=== PATIENT | male | born 1935 | race Caucasian/White ===

== ENCOUNTER 2018-02-13 23:25 | Inpatient (IN) | payer OTHER ==
[~2018-02-13] VITALS: Ht 172.7 cm; Wt 76.1 kg
[2018-02-14] MEDS ORDERED: MORPHINE SULFATE 4 MG/1ML SYG ONE ×2 (00:12→08:59)
[2018-02-14 00:49] LABS: BASOPHILS % (AUTO) 2.7 % (0.0-5.0); EOSINOPHILS % (AUTO) 0.5 % (0.0-8.0); HEMATOCRIT 38.9 % (42-54); LYMPHOCYTES % (AUTO) 7.9 % (21.0-51.0); MEAN CORPUSCULAR HEMOGLOBIN 28.3 pg (27.0-33.0); MEAN CORPUSCULAR VOLUME 83.1 fL (79-99); MONOCYTES % (AUTO) 5.8 % (3.0-13.0); NEUTROPHILS % (AUTO) 83.1 % (40.0-77.0); PLATELET COUNT (AUTO) 219 K/uL (130-400); RED BLOOD CELL COUNT(AUTO) 4.69 MIL/uL (4.50-6.20); RED CELL DISTRIBUTION WIDTH 14.9 % (11.0-15.5); WHITE BLOOD COUNT (AUTO) 12.5 K/uL (4.8-10.8)
[2018-02-14 01:05] LABS: CREATININE 1.3 mg/dL (0.5-1.5); POTASSIUM 4.1 mmol/L (3.5-5.1)
[2018-02-14 01:10] LABS: ALBUMIN 3.2 g/dL (3.5-5.0); BILIRUBIN,TOTAL 0.4 mg/dL (0.2-1.0); TOTAL PROTEIN, SERUM 6.6 g/dL (6.0-8.3)
[2018-02-14 01:24] LABS: INR 0.97 (0.85-1.15); PARTIAL THROMBOPLASTIN TIME 27.6 SEC (26.3-35.5); PROTHROMBIN TIME 10.2 SEC (9.6-11.6)
[2018-02-14 03:20] VITALS: BP 130/64
[2018-02-14] MEDS ORDERED: FE F1CAP33 PO (03:40)
[2018-02-14] MEDS ORDERED: AMLO5TAB4 PO (03:40)
[2018-02-14] MEDS ORDERED: TAMS-1 PO (03:40)
[2018-02-14] MEDS ORDERED: PRAV20TA4 PO (03:40)
[2018-02-14] MEDS ORDERED: SERT50TA12 PO (03:40)
[2018-02-14] MEDS ORDERED: METF10004 PO (03:40)
[2018-02-14] MEDS ORDERED: ENAL10TA PO (03:40)
[2018-02-14] MEDS ORDERED: MORPHINE SULFATE 2 MG/ML 1ML SYG IVP PRN (04:15)
[2018-02-14] MEDS ORDERED: ONDANSETRON HCL MDV 20ML 2 MG/ML VIAL IVP PRN (04:15)
[2018-02-14 07:54] VITALS: BP 121/61
[2018-02-14] MEDS: FAMOTIDINE/PF 20 MG/2 ML VIAL IV SCH (08:14)
[2018-02-14 10:38] LABS: APPEARANCE,URINE TURBID (CLEAR); BILIRUBIN,URINE NEGATIVE (NEGATIVE); COLOR,URINE YELLOW (YELLOW); GLUCOSE, URINE (UA) NEGATIVE (NEGATIVE); KETONES,URINE 5 mg/dL (NEGATIVE); LEUKOCYTE ESTERASE ,URINE LARGE (NEGATIVE); NITRATE,URINE POSITIVE (NEGATIVE); OCCULT BLOOD,URINE TRACE-INTACT (NEGATIVE); PH,URINE 8.5 (5.0-8.0); PROTEIN,URINE >=300 (NEGATIVE)
[2018-02-14 10:43] LABS: WBC,URINE TNTC /HPF (0-1)
[2018-02-14 10:44] LABS: BACTERIA,URINE Many /HPF (None Seen); MUCUS,URINE Few LPF (None Seen); SQUAMOUS EPITHELIAL CELL,UR Rare /HPF (0-2)
[2018-02-14 11:22] VITALS: BP 114/67
[2018-02-14 16:32] VITALS: BP 144/69
[2018-02-14] MEDS: MORPHINE SULFATE 4 MG/1ML SYG IVP PRN ×2 (18:51→23:42)
[2018-02-14 19:52] VITALS: BP 132/75
[2018-02-14] MEDS: ATORVASTATIN CALCIUM 10 MG TABLET PO SCH (19:58)
[2018-02-14] MEDS: SERTRALINE HCL 50 MG TABLET PO SCH (19:58)
[2018-02-14 23:43] VITALS: BP 136/84
[2018-02-15] VITALS (23 sets, daily range): BP systolic 107–150; BP diastolic 57–87
[2018-02-15] MEDS ORDERED: DEXTROSE 5 %-0.45 % NACL 1,000 ML IV SCH
[2018-02-15] MEDS ORDERED: PHARMACY COMMUNICATION MISC SCH (03:15)
[2018-02-15] MEDS: CEFAZOLIN SODIUM 1 GM VIAL IVP SCH ×3 (06:00→22:10)
[2018-02-15] MEDS ORDERED: GENTAMICIN SULFATE 80 MG/2 ML VIAL IM SCH (06:00)
[2018-02-15 06:20] LABS: HEMATOCRIT 37.7 % (42-54); MEAN CORPUSCULAR HEMOGLOBIN 28.4 pg (27.0-33.0); MEAN CORPUSCULAR HGB CONC 34.6 g/dL (32.0-36.0); MEAN CORPUSCULAR VOLUME 82.2 fL (79-99); PLATELET COUNT (AUTO) 183 K/uL (130-400); RED BLOOD CELL COUNT(AUTO) 4.58 MIL/uL (4.50-6.20); RED CELL DISTRIBUTION WIDTH 14.9 % (11.0-15.5); WHITE BLOOD COUNT (AUTO) 8.5 K/uL (4.8-10.8)
[2018-02-15 06:37] LABS: POTASSIUM 4.1 mmol/L (3.5-5.1)
[2018-02-15] MEDS: AMLODIPINE BESYLATE 5 MG TAB PO SCH (09:00)
[2018-02-15] MEDS: FE FUMARATE/FA/MV, MIN COMB#15 1 TAB PO SCH (09:00)
[2018-02-15] MEDS: ENALAPRIL MALEATE 10 MG TABLET PO SCH (09:00)
[2018-02-15] MEDS: FAMOTIDINE/PF 20 MG/2 ML VIAL IV SCH (11:42)
[2018-02-15] MEDS: MORPHINE SULFATE 4 MG/1ML SYG IVP PRN (11:45)
[2018-02-15] MEDS: TAMSULOSIN HCL 0.4 MG CAP.ER.24H PO SCH (11:46)
[2018-02-15] MEDS ORDERED: GLYCOPYRROLATE 0.2 MG/ML 5 ML VIAL ONE (15:39)
[2018-02-15] MEDS ORDERED: DEXAMETHASONE SOD PHOSPHATE 10MG/ML 1ML VIAL ONE (15:39)
[2018-02-15] MEDS ORDERED: LIDOCAINE PF 2% 5ML ABBOJECT ONE (15:39)
[2018-02-15] MEDS ORDERED: MIDAZOLAM HCL 1 MG/ML 2ML VIAL ONE (15:40)
[2018-02-15] MEDS ORDERED: PROPOFOL 10 MG/ML 20ML VIAL IV ONE (15:40)
[2018-02-15] MEDS ORDERED: FENTANYL CITRATE PF 50 MCG/1 ML 2ML VIAL ONE (15:40)
[2018-02-15] MEDS ORDERED: GENTAMICIN 80 MG/NS 100 ML PB 100 ML IV ONE (16:17)
[2018-02-15 17:57] LABS: HEMATOCRIT 35.9 % (42-54)
[2018-02-15] MEDS ORDERED: MAGNESIUM HYDROXIDE 30 ML/UDCUP PO PRN (19:30)
[2018-02-15] MEDS ORDERED: PROMETHAZINE HCL 25 MG/ML 1ML AMPULE IM PRN (19:30)
[2018-02-15] MEDS ORDERED: BISACODYL 10 MG SUPP.RECT RC PRN (19:30)
[2018-02-15] MEDS ORDERED: MORPHINE SULFATE 10 MG/ML 1ML SYG IM PRN (19:30)
[2018-02-15] MEDS ORDERED: ACETAMINOPHEN 325 MG TAB PO PRN (19:30)
[2018-02-15] MEDS: SERTRALINE HCL 50 MG TABLET PO SCH (20:38)
[2018-02-15] MEDS: ATORVASTATIN CALCIUM 10 MG TABLET PO SCH (20:38)
[2018-02-15] MEDS: LACTATED RINGERS 1000ML 1,000 ML IV SCH (23:00)
[2018-02-16] VITALS (7 sets, daily range): BP systolic 91–133; BP diastolic 56–83
[2018-02-16 00:43] LABS: HEMATOCRIT 36.8 % (42-54)
[2018-02-16] MEDS: GENTAMICIN 80 MG/NS 100 ML PB 100 ML IV SCH ×2 (01:18→10:30)
[2018-02-16] MEDS: MORPHINE SULFATE 4 MG/1ML SYG IVP PRN ×3 (02:37→20:47)
[2018-02-16 06:02] LABS: HEMATOCRIT 35.9 % (42-54)
[2018-02-16] MEDS: CEFAZOLIN SODIUM 1 GM VIAL IVP SCH ×2 (06:53→14:13)
[2018-02-16] MEDS ORDERED: GENTAMICIN 80 MG/NS 100 ML PB 100 ML IV ONE (10:24)
[2018-02-16] MEDS: FAMOTIDINE/PF 20 MG/2 ML VIAL IV SCH (10:27)
[2018-02-16] MEDS: TAMSULOSIN HCL 0.4 MG CAP.ER.24H PO SCH (10:30)
[2018-02-16] MEDS: FE FUMARATE/FA/MV, MIN COMB#15 1 TAB PO SCH (10:30)
[2018-02-16] MEDS: ENALAPRIL MALEATE 10 MG TABLET PO SCH (10:31)
[2018-02-16] MEDS: AMLODIPINE BESYLATE 5 MG TAB PO SCH (10:31)
[2018-02-16] MEDS ORDERED: TRAMADOL HCL 50 MG TABLET PO PRN (11:00)
[2018-02-16] MEDS ORDERED: SODIUM CHLORIDE 0.9% 500ML 500 ML IV SCH (16:15)
[2018-02-16] MEDS: SERTRALINE HCL 50 MG TABLET PO SCH (20:47)
[2018-02-16] MEDS: APIXABAN 2.5 MG TABLET PO SCH (20:47)
[2018-02-16] MEDS: ATORVASTATIN CALCIUM 10 MG TABLET PO SCH (20:47)
[2018-02-16] MEDS: LACTATED RINGERS 1000ML 1,000 ML IV SCH (23:00)
[2018-02-17 04:00] VITALS: BP 100/58
[2018-02-17 08:00] VITALS: BP 105/64
[2018-02-17] MEDS: ENALAPRIL MALEATE 10 MG TABLET PO SCH (09:00)
[2018-02-17] MEDS: AMLODIPINE BESYLATE 5 MG TAB PO SCH (09:00)
[2018-02-17] MEDS: APIXABAN 2.5 MG TABLET PO SCH ×2 (09:05→21:37)
[2018-02-17] MEDS: TAMSULOSIN HCL 0.4 MG CAP.ER.24H PO SCH (09:05)
[2018-02-17] MEDS: FAMOTIDINE/PF 20 MG/2 ML VIAL IV SCH (09:05)
[2018-02-17] MEDS: FE FUMARATE/FA/MV, MIN COMB#15 1 TAB PO SCH (09:05)
[2018-02-17] MEDS ORDERED: SODIUM CHLORIDE 0.9% 500ML 500 ML IV ONE (11:30)
[2018-02-17] MEDS: INSULIN HUMULIN R 100 UNIT/ML 3ML SQ SCH ×3 (11:30→20:58)
[2018-02-17 12:00] VITALS: BP 84/48
[2018-02-17 16:00] VITALS: BP 126/61
[2018-02-17 20:00] VITALS: BP 124/76
[2018-02-17] MEDS: ATORVASTATIN CALCIUM 10 MG TABLET PO SCH (21:37)
[2018-02-17] MEDS: SERTRALINE HCL 50 MG TABLET PO SCH (21:37)
[2018-02-17] MEDS: MORPHINE SULFATE 4 MG/1ML SYG IVP PRN (21:42)
[2018-02-17] MEDS: LACTATED RINGERS 1000ML 1,000 ML IV SCH (23:00)
[2018-02-18] VITALS: BP 119/66
[2018-02-18 04:00] VITALS: BP 116/65
[2018-02-18 07:30] VITALS: BP 119/64
[2018-02-18] MEDS: INSULIN HUMULIN R 100 UNIT/ML 3ML SQ SCH ×3 (07:30→16:30)
[2018-02-18] MEDS: ENALAPRIL MALEATE 10 MG TABLET PO SCH (08:39)
[2018-02-18] MEDS: AMLODIPINE BESYLATE 5 MG TAB PO SCH (08:39)
[2018-02-18] MEDS: TAMSULOSIN HCL 0.4 MG CAP.ER.24H PO SCH (08:39)
[2018-02-18] MEDS: APIXABAN 2.5 MG TABLET PO SCH (08:39)
[2018-02-18] MEDS: FE FUMARATE/FA/MV, MIN COMB#15 1 TAB PO SCH (08:39)
[2018-02-18] MEDS: FAMOTIDINE/PF 20 MG/2 ML VIAL IV SCH (08:39)
[2018-02-18] MEDS: MORPHINE SULFATE 4 MG/1ML SYG IVP PRN (11:11)
[2018-02-18 11:38] VITALS: BP 95/60
[2018-02-18 16:16] VITALS: BP 102/67
== END 2018-02-18 17:45 | DRG 481 ==
LOC: EDH 23:25 → EDHIP 02-14 00:30 → 4BH 02-14 03:09
PROVIDERS: ADMIT Family Medicine; ATTEND Family Medicine
PROC: 0QS604Z Reposition Right Upper Femur with Internal Fixation Device, Open Approach (ICD-10-PCS; principal; 2018-02-15 15:45)
DX: S72.141A Displaced intertrochanteric fracture of right femur, initial encounter for closed fracture (principal); D68.69 Other thrombophilia; E11.9 Type 2 diabetes mellitus without complications; I10 Essential (primary) hypertension; E78.00 Pure hypercholesterolemia, unspecified; E86.0 Dehydration; F02.80 Dementia in other diseases classified elsewhere, unspecified severity, without behavioral disturbance, psychotic disturbance, mood disturbance, and anxiety; G30.9 Alzheimer's disease, unspecified; N40.0 Benign prostatic hyperplasia without lower urinary tract symptoms; W01.0XXA Fall on same level from slipping, tripping and stumbling without subsequent striking against object, initial encounter; Y93.89 Activity, other specified; Y99.8 Other external cause status; Y92.098 Other place in other non-institutional residence as the place of occurrence of the external cause; Z87.891 Personal history of nicotine dependence; Z88.0 Allergy status to penicillin; Z91.048 Other nonmedicinal substance allergy status
CPT/HCPCS: 36415; 70450; 71045; 73502; 76000; 80048; 80053; 81001; 82948; 85014; 85018; 85025; 85027; 85610; 85730; 86850; 86900; 86901; 86922; 93005; 94760; 97039; A4218; A4344; A4606; C1713; C9113; J0690; J1100; J1580; J1815; J2001; J2250; J2270; J2704; J3010; J3490; J7030; J7040; J7042

== ENCOUNTER 2020-05-19 08:36 | Inpatient (IN) | payer OTHER ==
[2020-05-19] VITALS (22 sets, daily range): BP systolic 96–156; BP diastolic 55–89
[~2020-05-19] VITALS: Ht 170.2 cm; Wt 79.4 kg
[~2020-05-19 08:36] MED LIST: AMLO5TAB4 PO; ENAL10TA PO; FE F1CAP33 PO; METF-446 PO; PRAV20TA4 PO; SERT50TA12 PO; TAMS-1 PO
[2020-05-19 09:04] LABS: BASOPHILS % (AUTO) 0.4 % (0.0-5.0); EOSINOPHILS % (AUTO) 0.6 % (0.0-8.0); HEMATOCRIT 40.6 % (42-54); LYMPHOCYTES % (AUTO) 18.5 % (21.0-51.0); MEAN CORPUSCULAR HEMOGLOBIN 28.8 pg (27.0-33.0); MEAN CORPUSCULAR HGB CONC 33.5 g/dL (32.0-36.0); MEAN CORPUSCULAR VOLUME 85.8 fL (79-99); NEUTROPHILS % (AUTO) 71.8 % (40.0-77.0); PLATELET COUNT (AUTO) 161 K/uL (130-400); RED BLOOD CELL COUNT(AUTO) 4.73 MIL/uL (4.50-6.20); RED CELL DISTRIBUTION WIDTH 13.7 % (11.0-15.5)
[2020-05-19 09:23] LABS: ALBUMIN 3.6 g/dL (3.5-5.0); BILIRUBIN,TOTAL 0.7 mg/dL (0.2-1.0); CREATININE 1.2 mg/dL (0.5-1.5); POTASSIUM 4.1 mmol/L (3.5-5.1); TOTAL PROTEIN, SERUM 6.8 g/dL (6.0-8.3)
[2020-05-19 09:30] LABS: INR 0.92 (0.85-1.15); PARTIAL THROMBOPLASTIN TIME 27.7 SEC (26.3-35.5)
[2020-05-19 09:32] LABS: CREATINE KINASE, TOTAL 31 U/L (21-232); MYOGLOBIN 71 ng/mL (10-92); TROPONIN I < 0.04 ng/mL (0.00-0.06)
[2020-05-19] MEDS ORDERED: ONDANSETRON HCL 4 MG/2 ML VIAL ONE ×2 (09:40→15:06)
[2020-05-19] MEDS ORDERED: MORPHINE SULFATE 4 MG/1ML SYG ONE (09:40)
[2020-05-19] MEDS ORDERED: METF-526 PO (11:39)
[2020-05-19] MEDS ORDERED: KETOROLAC TROMETHAMINE 15MG/ML IV PRN ×2 (13:30→17:30)
[2020-05-19] MEDS ORDERED: MORPHINE SULFATE 2 MG/ML 1ML SYG IVP PRN (13:30)
[2020-05-19] MEDS: SODIUM CHLORIDE 0.9% 1000ML 1,000 ML IV SCH ×2 (13:40→17:17)
[2020-05-19 13:48] LABS: MEAN CORPUSCULAR HEMOGLOBIN 29.3 pg (27.0-33.0); MEAN CORPUSCULAR HGB CONC 34.4 g/dL (32.0-36.0); MEAN CORPUSCULAR VOLUME 85.2 fL (79-99); RED BLOOD CELL COUNT(AUTO) 4.81 MIL/uL (4.50-6.20); RED CELL DISTRIBUTION WIDTH 13.6 % (11.0-15.5); WHITE BLOOD COUNT (AUTO) 12.3 K/uL (4.8-10.8)
[2020-05-19 14:06] LABS: INR 0.94 (0.85-1.15); PROTHROMBIN TIME 10.2 SEC (9.6-11.6)
[2020-05-19 14:12] LABS: ALBUMIN 3.7 g/dL (3.5-5.0); BILIRUBIN,TOTAL 0.9 mg/dL (0.2-1.0); CREATININE 1.3 mg/dL (0.5-1.5); POTASSIUM 4.6 mmol/L (3.5-5.1); TOTAL PROTEIN, SERUM 7.1 g/dL (6.0-8.3)
[2020-05-19] MEDS ORDERED: FOLI1 PO (14:34)
[2020-05-19] MEDS ORDERED: LORA-705 PO (14:34)
[2020-05-19] MEDS: MORPHINE SULFATE 4 MG/1ML SYG IV PRN ×2 (14:41→22:05)
[2020-05-19] MEDS ORDERED: LIDOCAINE PF 2% 5ML ABBOJECT ONE (15:04)
[2020-05-19] MEDS ORDERED: SUCCINYLCHOLINE CHLORIDE 20 MG/ML 10 ML VIAL ONE ×2 (15:04→18:46)
[2020-05-19] MEDS ORDERED: PROPOFOL 10 MG/ML 20ML VIAL IV ONE (15:05)
[2020-05-19] MEDS ORDERED: GLYCOPYRROLATE 1 MG/5 ML SYRINGE ONE (15:05)
[2020-05-19] MEDS ORDERED: MIDAZOLAM HCL 1 MG/ML 2ML VIAL ONE (15:05)
[2020-05-19] MEDS ORDERED: DEXAMETHASONE SOD PHOSPHATE 10MG/ML 1ML VIAL ONE (15:05)
[2020-05-19] MEDS ORDERED: NEOSTIGMINE 5MG/5ML SYR IV ONE (15:05)
[2020-05-19] MEDS ORDERED: ROCURONIUM 10MG/1ML SYR 10 MG/ML ML ONE (15:06)
[2020-05-19] MEDS ORDERED: FENTANYL CITRATE PF 50 MCG/1 ML 2ML VIAL ONE (15:06)
[2020-05-19] MEDS ORDERED: PHENYLEPHRINE HCL 10 MG/ML 1ML VIAL IV ONE (15:11)
[2020-05-19] MEDS ORDERED: KETAMINE 50MG/ML SYRINGE 50 MG/ML DISP.SYRIN IV ONE (15:43)
[2020-05-19] MEDS ORDERED: ROPIVACAINE 0.5% 5MG/ML 30ML IJ ONE (15:43)
[2020-05-19] MEDS ORDERED: EPHEDRINE SULFATE 50 MG/ML AMPULE ONE (15:47)
[2020-05-19] MEDS ORDERED: ALBUMIN (HUMAN) 5% 500 ML IV ONE (15:50)
[2020-05-19] MEDS ORDERED: CEFAZOLIN SODIUM 1 GM VIAL ONE ×2 (16:39→16:59)
--- NOTE | 2020-05-19 17:10 | NUR ---
SPOKE WITH DAUGHTER/POA ALL GRAFF FOR DC PLANNING CONFIRMED NUMBER OF [facility]- DB BOLDEN [phone] PATIENT WILL LIKELY BE TRANSPORT VIA EMS. PATIENT HAS HX DEMENITA, WALKS WITH WALKER OR STAND BY ASSIST, IS CARE DEPENDENT FOR ADLS, FELL AFTER STANDING UP FOR A SITTING POSITION. PLAN IS HOME HEALTH AT [facility] AFTER THE SURGERY. WILL PREPARE PKG FOR HOME HEALTH REFERRAL [facility] FOR [facility] CM TO FOLLOW Addendum: 05/19/20 at 1715 by MILADIS JIMÉNEZ RN CM Amended: Links added.
[2020-05-19] MEDS ORDERED: HYDROCODONE/ACETAMINOPHEN 5/325 MG TAB PO PRN (17:30)
[2020-05-19] MEDS ORDERED: FERROUS FUMARATE 324 MG TABLET PO PRN (17:30)
[2020-05-19] MEDS: ACETAMINOPHEN EXTRA STRENGTH 500 MG TABLET PO SCH (17:30)
[2020-05-19] MEDS ORDERED: DIPHENHYDRAMINE HCL 25 MG CAPSULE PO PRN (17:30)
[2020-05-19] MEDS: CEFAZOLIN SODIUM 1 GM VIAL IVP SCH (17:30)
[2020-05-19] MEDS ORDERED: ONDANSETRON HCL 4 MG/2 ML VIAL IVP PRN (17:30)
[2020-05-19] MEDS ORDERED: POTASSIUM CHLORIDE 20MEQ/100ML 100 ML IV PRN (17:30)
[2020-05-19] MEDS ORDERED: POTASSIUM CHLORIDE 10% ELIXIR 20 MEQ/15 ML UDCUP PO PRN (17:30)
[2020-05-19] MEDS ORDERED: LIDOCAINE HCL-MPF 1% 2ML VIAL IV PRN (17:30)
[2020-05-19] MEDS ORDERED: POTASSIUM CHLORIDE 20 MEQ ERTAB PO PRN (17:30)
[2020-05-19] MEDS ORDERED: CALCIUM CARBONATE 500 MG TABLET PO PRN (17:30)
[2020-05-19] MEDS ORDERED: CEFAZOLIN SODIUM 1 GM VIAL IRRIG ONE (18:30)
[2020-05-19] MEDS: INSULIN HUMULIN R 100 UNIT/ML 3ML SQ SCH (21:00)
[2020-05-19] MEDS ORDERED: FAMOTIDINE 20MG TAB 20 MG TAB PO SCH (21:00)
[2020-05-19] MEDS: APIXABAN 2.5 MG TABLET PO SCH (21:19)
[2020-05-19] MEDS: HYDROCODONE/ACETAMINOPHEN 5/325 MG TAB PO PRN (21:20)
[2020-05-19] MEDS: HYDROMORPHONE 1 MG/1 ML AMP IVP PRN ×2 (22:36→23:53)
[2020-05-20] VITALS (8 sets, daily range): BP systolic 112–139; BP diastolic 66–80
[2020-05-20] MEDS: HYDROCODONE/ACETAMINOPHEN 5/325 MG TAB PO PRN ×3 (00:27→22:48)
--- NOTE | 2020-05-20 01:05 | NUR ---
ACTIVITY PATIENT ASSISTED TO EDGE OF BED TO DANGLE LEGS PER PROTOCOL. PATIENT TOLERATED WELL AND WAS THEN ASSISTED BACK TO BED,
[2020-05-20] MEDS: HYDROMORPHONE 1 MG/1 ML AMP IVP PRN ×9 (01:15→23:33)
[2020-05-20] MEDS: CEFAZOLIN SODIUM 1 GM VIAL IVP SCH (01:16)
[2020-05-20] MEDS: ACETAMINOPHEN EXTRA STRENGTH 500 MG TABLET PO SCH ×3 (01:16→17:26)
[2020-05-20] MEDS: SODIUM CHLORIDE 0.9% 1000ML 1,000 ML IV SCH ×4 (02:00→14:30)
[2020-05-20] MEDS: INSULIN HUMULIN R 100 UNIT/ML 3ML SQ SCH ×4 (05:21→20:48)
[2020-05-20 08:21] LABS: HEMATOCRIT 34.5 % (42-54); MEAN CORPUSCULAR HEMOGLOBIN 29.1 pg (27.0-33.0); MEAN CORPUSCULAR HGB CONC 33.6 g/dL (32.0-36.0); MEAN CORPUSCULAR VOLUME 86.5 fL (79-99); RED BLOOD CELL COUNT(AUTO) 3.99 MIL/uL (4.50-6.20); RED CELL DISTRIBUTION WIDTH 13.7 % (11.0-15.5); WHITE BLOOD COUNT (AUTO) 8.7 K/uL (4.8-10.8)
[2020-05-20 08:31] LABS: CREATININE 1.4 mg/dL (0.5-1.5); POTASSIUM 4.1 mmol/L (3.5-5.1)
[2020-05-20] MEDS: APIXABAN 2.5 MG TABLET PO SCH ×2 (10:08→19:26)
[2020-05-20] MEDS: TAMSULOSIN HCL 0.4 MG CAP.ER.24H PO SCH (10:09)
[2020-05-20] MEDS: FAMOTIDINE/PF 20 MG/2 ML VIAL IV SCH (10:09)
[2020-05-20] MEDS: POLYETHYLENE GLYCOL 3350 17 GM POWD.PACK PO SCH (10:09)
--- NOTE | 2020-05-20 12:53 | NUR ---
CM Note: [facility] pending approval CM faxed order, clinicals, PT, covid assessment to [facility], confirmation received. Spoke to Doris will await clinicals sent, aware dcp today/once approved. Pt pending approval at this time. EMS arranged and faxed, primary nurse to call [facility] once pt ready to DC. Primary nurse aware. CM to cont to follow up.
--- NOTE | 2020-05-20 13:28 | NUR ---
CHART CHECK COMPLETED. Pt IS AN 85 Y.O. MALE ADMITTED SECONDARY TO LEFT HIP FRACTURE. Pt HAS A PAST MEDICAL HISTORY SIGNIFICANT FOR HYPERTENSION, DM, R HIP FRACTURE, DEMENTIA. Pt CURRENTLY ON REGULAR TEXTURE,THIN LIQUID DIET (CONSISTENT CARB). PLEASE REQUEST FORMAL SKILLED SPEECH/SWALLOW EVALUATION IF Pt PRESENTS WITH +S/S OF ASPIRATION SUCH COUGH RESPONSE, THROAT CLEAR, OR WET VOCAL QUALITY DURING P.O. Addendum: 05/20/20 at 1330 by QUE SOSA, [facility] Amended: Links added.
--- NOTE | 2020-05-20 14:24 | NUR ---
PT'S DAUGHTER ALL CALLED TO CHECK ON PATIENT I UPDATED HER ON HOW HIS WALKING WAS TODAY; THAT HE STILL NEEDED FURTHER REINFORCEMENT OF BEING PARTIAL WEIGHT BEARING LLE; SHE STATED IF HE NEEDED TO STAY ANOTHER DAY TO GET FURTHER PHYSICAL THERAPY SHE WAS OK WITH THAT.
--- NOTE | 2020-05-20 14:31 | NUR ---
I SPOKE TO DR DOMINGUEZ ON THE PHONE AND UPDATED HIM ON HOW PT DID WITH PHYSICAL THERAPY, THAT HE DID NOT DO WELL WITH PWB; DR DOMINGUEZ SAID TO RETURN BACK TO [facility] THEN; I LET HIM KNOW PT'S DAUGHTER IS OK WITH PT STAYING ANOTHER DAY IF NECESSARY AND THAT HOME HEALTH STILL PENDING APPROVAL AT THIS TIME; HE STATED TO KEEP PATIENT TILL TOMORROW TO COMPLETE D/C PREPERATION AND CONT. PHYSICAL THERAPY.
--- NOTE | 2020-05-20 16:45 | NUR ---
CM Note: [facility] approval CM spoke to Morenita w/[employer]. patient has approval. Per Dr Whitney plan dcp for tomorrow as pt is still weak. Patient will need EMS set up in case pt is still weak tomorrow. Primary nurse aware. CM to cont to follow up.
[2020-05-21 00:08] VITALS: BP 124/69
[2020-05-21] MEDS: MORPHINE SULFATE 4 MG/1ML SYG IV PRN ×2 (00:25→05:21)
[2020-05-21] MEDS: HYDROMORPHONE 1 MG/1 ML AMP IVP PRN ×6 (01:03→06:13)
[2020-05-21] MEDS: ACETAMINOPHEN EXTRA STRENGTH 500 MG TABLET PO SCH ×2 (01:31→09:02)
[2020-05-21] MEDS: SODIUM CHLORIDE 0.9% 1000ML 1,000 ML IV SCH ×2 (02:36→15:31)
[2020-05-21 04:08] VITALS: BP 120/63
[2020-05-21] MEDS: INSULIN HUMULIN R 100 UNIT/ML 3ML SQ SCH ×3 (05:34→16:30)
[2020-05-21 06:05] LABS: BASOPHILS % (AUTO) 0.8 % (0.0-5.0); EOSINOPHILS % (AUTO) 1.3 % (0.0-8.0); HEMATOCRIT 31.7 % (42-54); LYMPHOCYTES % (AUTO) 11.9 % (21.0-51.0); MEAN CORPUSCULAR HGB CONC 34.1 g/dL (32.0-36.0); MONOCYTES % (AUTO) 7.6 % (3.0-13.0); NEUTROPHILS % (AUTO) 77.9 % (40.0-77.0); PLATELET COUNT (AUTO) 123 K/uL (130-400); RED BLOOD CELL COUNT(AUTO) 3.73 MIL/uL (4.50-6.20); RED CELL DISTRIBUTION WIDTH 13.8 % (11.0-15.5); WHITE BLOOD COUNT (AUTO) 7.5 K/uL (4.8-10.8)
[2020-05-21 06:09] LABS: CREATININE 1.6 mg/dL (0.5-1.5); POTASSIUM 3.8 mmol/L (3.5-5.1)
[2020-05-21 08:00] VITALS: BP 141/80
[2020-05-21] MEDS: TAMSULOSIN HCL 0.4 MG CAP.ER.24H PO SCH (09:01)
[2020-05-21] MEDS: APIXABAN 2.5 MG TABLET PO SCH (09:01)
[2020-05-21] MEDS: POLYETHYLENE GLYCOL 3350 17 GM POWD.PACK PO SCH (09:02)
[2020-05-21] MEDS: FAMOTIDINE/PF 20 MG/2 ML VIAL IV SCH (09:02)
[2020-05-21 11:00] VITALS: BP 122/76
[2020-05-21] MEDS ORDERED: HYDR-4060 PO (13:00)
[2020-05-21] MEDS ORDERED: APIX2.5T PO (13:00)
--- NOTE | 2020-05-21 13:30 | NUR ---
CALLED [facility] [phone]. I WAS TOLD THAT THE NURSE WAS ON ANOTHER CALL AND THAT SHE WILL CALL ME BACK. GAVE THEM MY NUMBER [phone]. [phone].
--- NOTE | 2020-05-21 15:18 | NUR ---
[facility] CALLED 2 TIMES ALREADY. STATED RN IS BUSY AND WILL CALL ME BACK.
--- NOTE | 2020-05-21 15:29 | NUR ---
[facility] AWARE OF PATIENT LEAVING THE HOSPITAL TODAY. SPOKE TO DB BOLDEN RN. DISCHARGE INSTRUCTIONS GIVEN WELL RECOMMENDATIONS FOR CARE. DB VERBALIZED UNDERSTANDING OF ALL EDUCATION GIVEN.
[2020-05-21 16:00] VITALS: BP 139/67
--- NOTE | 2020-05-21 16:57 | NUR ---
INDU BRAVO MADE AWARE THAT [facility] IS NOT RETURNING MY CALLS AT ALL. JAYLYN STATED THAT SHE WILL LOOK INTO IT.
--- NOTE | 2020-05-21 17:09 | NUR ---
RECEIVED CALL BACK FROM [facility]: ZEYNEP LAMBERT LVN, GIVEN DISCHARGE INSTRUCTIONS ON F/U APPOINTMENTS, NEW RX (NORCO,ASA), PT [facility], DRESSING CHANGE ON 05/23/20 AND THEN PRN. NO CONCERNS VOICED.
[2020-05-22] MEDS ORDERED: BISACODYL 10 MG SUPP.RECT RC PRN (17:30)
== END 2020-05-21 18:15 | disposition home health service (06) | DRG 482 ==
LOC: EDH 08:36 → EDHIP 12:00 → 3DH 21:38
PROVIDERS: ADMIT Orthopaedic Surgery; ATTEND Orthopaedic Surgery
PROC: 0QS706Z Reposition Left Upper Femur with Intramedullary Internal Fixation Device, Open Approach (ICD-10-PCS; principal; 2020-05-19 17:00)
PROC: 3E0T3BZ Introduction of Anesthetic Agent into Peripheral Nerves and Plexi, Percutaneous Approach (ICD-10-PCS; 2020-05-19 17:00)
DX: S72.142A Displaced intertrochanteric fracture of left femur, initial encounter for closed fracture (principal); F32.9 Major depressive disorder, single episode, unspecified; I10 Essential (primary) hypertension; E11.9 Type 2 diabetes mellitus without complications; S72.032A Displaced midcervical fracture of left femur, initial encounter for closed fracture; F02.80 Dementia in other diseases classified elsewhere, unspecified severity, without behavioral disturbance, psychotic disturbance, mood disturbance, and anxiety; W06.XXXA Fall from bed, initial encounter; Y93.89 Activity, other specified; Y92.092 Bedroom in other non-institutional residence as the place of occurrence of the external cause; Y99.8 Other external cause status; Z79.84 Long term (current) use of oral hypoglycemic drugs; Z87.891 Personal history of nicotine dependence; Z82.3 Family history of stroke; Z81.8 Family history of other mental and behavioral disorders
CPT/HCPCS: 36415; 70450; 71045; 72125; 73502; 73503; 80048; 80053; 82550; 82948; 83874; 84484; 85025; 85027; 85610; 85730; 86850; 86900; 86901; 86922; 93005; 97039; G0378; J0330; J0690; J1100; J1170; J1815; J2001; J2250; J2270; J2370; J2405; J2704; J2710; J2795; J3010; J3490; J7030; P9045

== ENCOUNTER 2022-09-20 10:32 | Emergency (ER) | payer MEDICARE, OTHER ==
[~2022-09-20] VITALS: Ht 170.2 cm; Wt 70.3 kg
[~2022-09-20 10:32] MED LIST changes: +APIX2.5T PO; -ENAL10TA PO; +ENAL10TA18 PO; +FOLI1 PO; +HYDR-4060 PO; +LORA-699 PO; -METF-446 PO; +METF-526 PO; +SERT-439 PO; -SERT50TA12 PO
[2022-09-20 11:07] LABS: BASOPHILS % (AUTO) 0.5 % (0.0-5.0); HEMATOCRIT 39.3 % (42-54); LYMPHOCYTES % (AUTO) 4.2 % (21.0-51.0); MEAN CORPUSCULAR HEMOGLOBIN 29.2 pg (27.0-33.0); MEAN CORPUSCULAR HGB CONC 32.6 g/dL (32.0-36.0); MEAN CORPUSCULAR VOLUME 89.5 fL (79-99); MONOCYTES % (AUTO) 8.5 % (3.0-13.0); NEUTROPHILS % (AUTO) 86.5 % (40.0-77.0); PLATELET COUNT (AUTO) 185 K/uL (130-400); RED BLOOD CELL COUNT(AUTO) 4.39 MIL/uL (4.50-6.20); RED CELL DISTRIBUTION WIDTH 14.1 % (11.0-15.5); WHITE BLOOD COUNT (AUTO) 5.7 K/uL (4.8-10.8)
[2022-09-20 11:09] LABS: APPEARANCE,URINE CLOUDY (CLEAR); BILIRUBIN,URINE NEGATIVE (NEGATIVE); COLOR,URINE YELLOW (YELLOW); GLUCOSE, URINE (UA) NEGATIVE (NEGATIVE); KETONES,URINE NEGATIVE (NEGATIVE); LEUKOCYTE ESTERASE ,URINE 500 Leu/uL (NEGATIVE); NITRATE,URINE NEGATIVE (NEGATIVE); OCCULT BLOOD,URINE SMALL (NEGATIVE); PH,URINE 5.5 (5.0-8.0); PROTEIN,URINE 50 mg/dL (NEGATIVE); UROBILINOGEN,URINE 0.2 mg/dL (0.2-1.0)
[2022-09-20 11:17] LABS: CREATININE 2.3 mg/dL (0.5-1.5); POTASSIUM 3.7 mmol/L (3.5-5.1)
[2022-09-20 11:21] LABS: BACTERIA,URINE MANY /HPF (None Seen); RBC,URINE 26-50 /HPF (0-1); SQUAMOUS EPITHELIAL CELL,UR RARE /HPF (0-2); WBC,URINE 26-50 /HPF (0-1)
[2022-09-20 11:21] LABS: ALBUMIN 2.6 g/dL (3.5-5.0); TOTAL PROTEIN, SERUM 5.4 g/dL (6.0-8.3)
[2022-09-20] MEDS ORDERED: 0.9%NACL 1000ML 1,000 ML IV ONE (13:00)
[2022-09-20] MEDS ORDERED: LEVOFLOXACIN 500 MG/D5W 100 ML 100 ML IV SCH (13:00)
[2022-09-20 15:20] VITALS: BP 111/49
[2022-09-20] MEDS ORDERED: LEVO750T68 PO (15:54)
== END 2022-09-20 16:11 | disposition home or self-care (01) ==
LOC: EDH 10:32
DX: N39.0 Urinary tract infection, site not specified (principal); E86.0 Dehydration; R91.8 Other nonspecific abnormal finding of lung field; Z20.822 Contact with and (suspected) exposure to COVID-19; Z79.899 Other long term (current) drug therapy
CPT/HCPCS: 99285; 96365; 71045; 87635; 84484; 80053; 83690; 85025; 87040 ×2; 87077; 87088; 87186; 87804 ×2; 82948; 81001; 36415; 93005; C9803; J1956; J7030